=== PATIENT | male | born 1970 | race Caucasian/White ===

== ENCOUNTER 2024-06-12 10:12 | Emergency (ER) | payer OTHER ==
--- OUTSIDE RECORDS SUMMARY | 2024-06-12 10:16 | XMS REPORT | Continuity of Care Document ---
Author Name Unknown Address [address] [facility]. [address] [place] [address] [facility] Address [address] [facility] [place] [address] Care Team Providers Care Director Radio Name Role Phone Itz Jackson Attending Clinician Bridget Molina Attending Clinician Unavailable Physician, No Primary or Family Admitting Clinic barbara Unavailable QI GARCIA Admitting Clinician Unavailable Payers Payer Name Policy Type Policy Number Effective Date Expirati on Date Source Allergies, Adverse Reactions, Alerts Allergy Name Allergy Type Status Severity Reaction(s) Onset Date Inactive Date Treating Clinician Comments Source No Known Allergie s DA Active U 05-08 00:00: 00 [facility] No Known Allergie s DA Active U 2021-03 00:00: 00 [facility] Encounters Start Date/Time End Date/Time Encounter Type Admission Type Attending Clinicians Care Facility Care Department Encounter ID Source 2022-05-08 16:48:00 2022-05-08 18:10:00 Emergency EM Itz Jackson [facility] ER [id number] [facility] 2022-05-08 16:48:00 2022-05-08 18:10:00 Emergency EM Itz Jackson [facility] ER [id number] [facility] 2022-03-10 17:40:00 2022-03-10 20:20:00 Emergency EM Bridget Morton [facility] ER [id number] [facility] Results Test Description Test Time Test Comments Results Result Co mments Source COMPREHENSIVE METABOLIC [id number] 17:20:00* Test Item Value Reference Range Interpretation Comme nts SODIUM (test code = NA) 146 MMOL/L 133-145 H POTASSIUM (test code = K) 4.4 MMOL/L 3.6-5.2 N CHLORIDE (test code = CL) 104 MMOL/L 100-108 N CARBON DIOXIDE (test code = CO2) 33 MMOL/L 22-32 H GLUCOSE (test code = GLU) 121 MG/DL 65-99 H Results of this assay method may be falsely depressed orelevated if patient is taking sulfasalazine. BLOOD UREA NITROGEN (test code = BUN) 14 MG/DL 6-20 N GLOMERULAR FILTRATION RATE (test code = GFR) 66 56-130 N The Glomerular Filtration Rate is a calculated parameterbased on serum Creatinine, patient age and sex. GFR valuesless than 60 mL/min/1.73 square meters are indicative ofChronic Kidney Disease. Values less than 15 mL/min/1.73square meters indicate Kidney failure. The calculation forGFR is based on the CKD-EPI (2020) calculation. This formulais race indifferent and is the recommended formula for GFRby the National Kidney Foundation for Adults.The GFR will not calculate if the sex is unknown or if thepatient's age is <18 years. CREATININE (test code = CREAT) 1.30 MG/DL 0.60-1.00 H TOTAL PROTEIN (test code = PROT) 7.2 G/DL 6.4-8.2 N ALBUMIN (test code = ALB) 4.1 G/DL 3.4-5.0 N CALCIUM (test code = CA) 10.3 MG/DL 8.7-10.5 N BILIRUBIN TOTAL (test code = BILT) 0.8 MG/DL 0.0-1.0 N SGOT/AST (test code = AST) 30 Units/L 15-37 N Results of this assay method may be falsely depressed orelevated if patient is taking sulfasalazine. SGPT/ALT (test code = ALT) 37 Units/L 30-65 N Results of this assay method may be falsely depressed orelevated if patient is taking sulfasalazine. ALKALINE PHOSPHATASE TOTAL (test code = ALKP) 83 Units/L 50-136 N - XR CHEST 1 [id number] 17:14:[address] [facility] [place] [place] : 1970 Sex: M Patient Name: ITZ CASTILLO Unit No: [id number] EXAMS: CPT CODE: [id number] XR CHEST 1 V [id number] Reason: chest pain EXAM: XR Chest 1 View INDICATION: chest pain LOCATION: H50 COMPARISON: None available. TECHNIQUE: Frontal view of the chest was obtained. FINDINGS: The lungs are clear. There is no pleural effusion or pneumothorax. The cardiomediastinal silhouette is unremarkable. No acute osseous abnormality is identified. IMPRESSION: No acute cardiopulmonary abnormality. Electronically Signedby Bridget Butcher MD on 05/08/2022 at 1714 Reported and signed by: Bridget Butcher MD CC: Itz Jackson DOToño Solomon Technologist: DENIA Martines Trscrpt Dt/ ([id number])[email or web address] Orig Print D/T: S: 05/08/2022 (567) [place] FSED NAME: ITZ CASTILLO [address] PHYS: [place] [address] : 1970 AGE: 51 SEX: M LOC: MARC PHONE #: EXAM DATE: 05/08/2022 STATUS: PRE ER FAX #: RAD NO: DC Dt: PAGE 1 Signed Report- XR CHEST 1 [id number] 17:14:[address] [facility] [place] : 1970 Sex: M Patient Name: ITZ CASTILLO Unit No: [id number] EXAMS: CPT CODE: [id number] XR CHEST 1 V 12547 Reason: chest pain EXAM: XR Chest 1 View INDICATION: chest pain LOCATION: H50 COMPARISON: None available. TECHNIQUE: Frontal view of the chest was obtained. FINDINGS: The lungs are clear. There is no pleural effusion or pneumothorax. The cardiomediastinal silhouette is unremarkable. No acute osseous abnormality is identified. IMPRESSION: No acute cardiopulmonary abnormality. at 1714 Reported and signed by: Bridget Butcher MD CC: Itz Solomon Technologist: DENIA Martines Trscrpt Dt/ ([id number])[email or web address] Orig Print D/T: S: 05/08/2022 (0263) [place] FS[facility] NAME: ITZ CASTILLO [address] PHYS: [place] [address] : 1970 AGE: 51 SEX: M LOC: MARC PHONE #: EXAM DATE: 05/08/2022 STATUS: DEP ER FAX #: RAD NO: DC Dt: PAGE 1 Signed ReportCBC W/AUTO [id number] 17:12:00* Test Item Value Reference Range Interpretation Comme nts WHITE BLOOD CELL (test code = WBC) 9.30 x10 3/uL 4.80-10.80 N RED BLOOD CELL (test code = RBC) 5.10 x10 6/uL 4.7-6.1 N HEMOGLOBIN (test code = HGB) 15.3 G/DL 14.0-17.0 N HEMATOCRIT (test code = HCT) 47.6 % 42-52 N MEAN CELL VOLUME (test code = MCV) 93.3 FL 80-94 N MEAN CELL HGB (test code = MCH) 30.0 PG 27-31 N MEAN CELL HGB CONCENTRATION (test code = MCHC) 32.1 G/DL 33-37 L RED CELL DISTRIBUTION WIDTH (test code = RDW) 12.6 % 11.5-14.5 N PLATELET COUNT (test code = PLT) 230 x10 3/uL 150-450 N MEAN PLATELET VOLUME (test code = MPV) 10.8 FL 7.4-10.4 H NEUTROPHIL % (test code = NT%) 78.5 % 42-86 N LYMPHOCYTE % (test code = LY%) 17.3 % 24-44 L MIXED % (test code = MX%) 4.2 % MIXED PERCENTAGE AND ABSOLUTE INCLUDE MONOCYTE, BASOPHIL ANDEOSINOPHIL COUNTS. NEUTROPHIL # (test code = NT#) 7.30 x10 3/uL 1.8-7.7 N LYMPHOCYTE # (test code = LY#) 1.60 x10 3/uL 1.0-4.8 N MIXED # (test code = MX#) 0.4 k/mm3 MIXED PERCENTAGE AND ABSOLUTE INCLUDE MONOCYTE, BASOPHIL ANDEOSINOPHIL COUNTS. UA RFLX MICROSCOPIC [id number] 19:57:00* Test Item Value Reference Range Interpretation Comme nts UA COLOR (test code = COLU) Light-Yellow YELLOW UA APPEARANCE (test code = APPU) CLEAR CLEAR UA GLUCOSE DIPSTICK (test code = DGLUU) NORMAL mg/dL NEGATIVE UA BILIRUBIN DIPSTICK (test code = BILU) NEGATIVE NEGATIVE UA KETONE DIPSTICK (test code = KETU) 20 mg/dL NEGATIVE A UA SPECIFIC GRAVITY (test code = SGU) 1.011 1.001-1.035 N UA BLOOD DIPSTICK (test code = LOY) NEGATIVE UA PH DIPSTICK (test code = WILTON) 7.0 5.5-7.0 N UA PROTEIN DIPSTICK (test code = PROU) NEGATIVE mg/dL NEGATIVE UA UROBILINOGEN DIPSTICK (test code = URO) NORMAL mg/dL NORMAL UA NITRITE DIPSTICK (test code = JEVON) NEGATIVE NEGATIVE UA LEUKOCYTE ESTERASE DIPSTICK (test code = LEUU) NEGATIVE NEGATIVE UA COMMENT (test code = COMU) VOLUME 10-12 ML URINE SPECIMEN DESCRIPTION (test code = UASPEC) Clean Catch UA WBC (test code = WBCU) < 10 #/HPF 0-10 UA SQUAMOUS CELLS (test code = SQU) 0 - 20 #/LPF <100 UA CULTURE NEEDED? (test code = UACULT) Criteria not met Indication for culture: RiskForSepsis-no oth srcURINE SOURCE: Clean CatchTROP-I HIGH [id number] 19:15:00* Test Item Value Reference Range Interpretation Comme nts TROP-I HIGH SENSITIVITY (test code = TROPIHS) 6 ng/L < 76 Results above 51 for females and 76 for males are consistent with IFCC Committee recommendations to use the 99th percentile of a normal population as a reference decision-limit. - The use of serial sampling and testing protocol is a recommended practive.- An elevated high sensitiveity troponin level alone is often not sufficient for diagnosis of myocardial infarction.- In order to distinguish acute elevations of high sensitivity troponin from other clinical conditions, the Fourth [place] Definition of Myocardial Infarction stresses clinical assessment and demonstration of a rise and/or fall in serial troponin results above the upper reference limit.Results of this assay method may be falsely depressed orelevated if patient is taking high doses of Biotin. BASIC METABOLIC [id number] 19:15:00* Test Item Value Reference Range Interpretation Comme nts SODIUM (test code = NA) 141 MMOL/L 133-145 N POTASSIUM (test code = K) 4.1 MMOL/L 3.6-5.2 N CHLORIDE (test code = CL) 102 MMOL/L 100-108 N CARBON DIOXIDE (test code = CO2) 27 MMOL/L 22-32 N GLUCOSE (test code = GLU) 89 MG/DL 65-99 N Results of this assay method may be falsely depressed orelevated if patient is taking sulfasalazine. BLOOD UREA NITROGEN (test code = BUN) 11 MG/DL 6-20 N GLOMERULAR FILTRATION RATE (test code = GFR) 77 56-130 N The Glomerular Filtration Rate is a calculated parameterbased on serum Creatinine, patient age and sex. GFR valuesless than 60 mL/min/1.73 square meters are indicative ofChronic Kidney Disease. Values less than 15 mL/min/1.73square meters indicate Kidney failure. The calculation forGFR is based on the CKD-EPI (2020) calculation. This formulais race indifferent and is the recommended formula for GFRby the National Kidney Foundation for Adults.The GFR will not calculate if the sex is unknown or if thepatient's age is <18 years. CREATININE (test code = CREAT) 1.15 MG/DL 0.60-1.00 H CALCIUM (test code = CA) 10.5 MG/DL 8.7-10.5 N HEPATIC FUNCTION [id number] 19:15:00* Test Item Value Reference Range Interpretation Comme nts TOTAL PROTEIN (test code = PROT) 8.2 G/DL 6.4-8.2 N ALBUMIN (test code = ALB) 4.9 G/DL 3.4-5.0 N GLOBULIN (test code = GLOB) 3.3 G/DL 1.5-3.8 N ALBUMIN/GLOBULIN RATIO (test code = A/G) 1.5 1.1-2.2 N BILIRUBIN TOTAL (test code = BILT) 0.9 MG/DL 0.0-1.0 N BILIRUBIN DIRECT (test code = BILD) 0.2 MG/DL 0.0-0.3 N BILIRUBIN INDIRECT (test code = BILIND) 0.7 MG/DL 0.0-0.7 N SGOT/AST (test code = AST) 38 Units/L 15-37 H Results of this assay method may be falsely depressed orelevated if patient is taking sulfasalazine. SGPT/ALT (test code = ALT) 61 Units/L 30-65 N Results of this assay method may be falsely depressed orelevated if patient is taking sulfasalazine. ALKALINE PHOSPHATASE TOTAL (test code = ALKP) 87 Units/L 50-136 N [id number] 19:15:00* Test Item Value Reference Range Interpretation Comme nts LIPASE (test code = LIP) 159 Units/L 73-393 N [id number] 19:15:00* Test Item Value Reference Range Interpretation Comme nts MAGNESIUM (test code = MAG) 2.3 MG/DL 1.8-2.4 N - XR CHEST 1 [id number] 18:44:[address] [facility] [place] : 1970 Sex: M Patient Name: ITZ CASTILLO Unit No: [id number] EXAMS: CPT CODE: [id number] XR CHEST 1 V [id number] Reason: Abdominal pain - XR CHEST 1 V PROVIDED REASON FOR EXAM: Abdominal pain COMPARISON: None available. FINDINGS: Single frontal view of the chest. No focal consolidation. Cardiac silhouette andpulmonary vasculature are within normal limits. No acute osseous abnormality. IMPRESSION: No acute cardiopulmonary process. Location: [facility] at 1844 Reported and signed by: Elicia Menjivar MD CC: Fely Eng JAVA FRONT END WEB DEVELOPER; Bridget Morton DO Technologist: Larissa CORDON Trscrpt Dt/ ([id number])[email or web address] Orig Print D/T: S: 03/10/2022 (1847) [facility] Area NAME: ITZ CASTILLO [address] PHYS: [place] [address] : 1970 AGE: 51 SEX: M LOC: SERGEI PHONE #: [phone] EXAM DATE: 03/10/2022 STATUS: REG ER FAX #: RAD NO: DC Dt: PAGE 1 Signed [facility] W/AUTO [id number] 18:41:00* Test Item Value Reference Range Interpretation Comme nts WHITE BLOOD CELL (test code = WBC) 10.45 x10 3/uL 4.80-10.80 N RED BLOOD CELL (test code = RBC) 5.20 x10 6/uL 4.7-6.1 N HEMOGLOBIN (test code = HGB) 15.9 G/DL 14.0-17.0 N HEMATOCRIT (test code = HCT) 48.2 % 42-52 N MEAN CELL VOLUME (test code = MCV) 92.7 FL 80-94 N MEAN CELL HGB (test code = MCH) 30.6 PG 27-31 N MEAN CELL HGB CONCENTRATION (test code = MCHC) 33.0 G/DL 33-37 N RED CELL DISTRIBUTION WIDTH (test code = RDW) 12.9 % 11.5-14.5 N PLATELET COUNT (test code = PLT) 275 x10 3/uL 150-450 N MEAN PLATELET VOLUME (test code = MPV) 11.1 FL 7.4-10.4 H NEUTROPHIL % (test code = NT%) 74.8 % 42-86 N IMMATURE GRANULOCYTE % (test code = IG%) 0.3 % 0.0-2.0 N LYMPHOCYTE % (test code = LY%) 19.7 % 24-44 L MONOCYTE % (test code = MO%) 4.4 % 0.0-4.0 H EOSINOPHIL % (test code = EO%) 0.5 % 0.0-2.7 N BASOPHIL % (test code = BA%) 0.3 % 0.0-0.5 N NUCLEATED RBC % (test code = NRBC%) 0.0 % 0.0-0.0 N NEUTROPHIL # (test code = NT#) 7.82 x10 3/uL 1.8-7.7 H IMMATURE GRANULOCYTE # (test code = IG#) 0.03 x10 3/uL 0.00-0.03 N LYMPHOCYTE # (test code = LY#) 2.06 x10 3/uL 1.0-4.8 N MONOCYTE # (test code = MO#) 0.46 x10 3/uL 0.0-0.8 N EOSINOPHIL # (test code = EO#) 0.05 x10 3/uL 0.0-0.5 N BASOPHIL # (test code = BA#) 0.03 x10 3/uL 0.0-0.2 N NUCLEATED RBC # (test code = NRBC#) 0.0 X10 3/uL 0.0-0.2 N Notes Date/Time Note Provider Source 2022-05-08 16:58:00 [facility] ([facility] OR A [facility]AMPUS OF [facility] EMERGENCY PROVIDER REPORT REPORT#:[id number] REPORT STATUS: Signed DATE:05/08/22 TIME: 1657 PATIENT: ITZ CASTILLO UNIT #: [id number] ROOM/BED: AGE: 51 SEX: M PCP PHYS: No Primary or Family Physician SERVICE AUTHOR: Lety Solomon APRNNP * ALL edits or amendments must be made on the electronic/computer document * Lety Solomon 05/08/221657: HPI-General Illness General Confirmed Patient Yes Initial Greet Date/Time 05/08/221649 Presentation Chief Complaint Chest pain (PRESSURE), Heartburn, Palpitations Hx Obtained From Patient Sudden in Onset? Yes (X3 DAYS) Context Recent Healthcare No recent doctor visit, No recent hospitalization Free Text HPI Notes Free Text HPI Notes 51-year-old male presents ER complaining of chest pain/pressure in his chest, heartburn, palpitations that started earlier today. He has had this many times in the past and was diagnosed with heartburn and esophageal spasms. He recently reduced his medications on his own, including his pantoprazole and sucralfate. He is from [place] and is here in [place] visiting until next week. Denies fever, chills, headaches, dizziness, confusion, trouble swallowing, ear pain, sore throat, cough, shortness of breath, nausea, vomiting, diarrhea, urinary changes. Review of Systems ROS Statements All systems rev neg except as marked. Free Text ROS Notes Free Text ROS Notes See HPI for pertinent positives and negatives Past Medical History - Adult Stated Complaint Chest pain, heartburn, palpitations Allergies Coded Allergies: No Known Allergies (05/08/22) Home Medications Reported Medications PANTOPRAZOLE DR (PROTONIX) SUCRALFATE (CARAFATE) Review of Nursing Notes Rev avail, and agree Past Medical History: Reports: GERD/gastritis. Drug Use Denies recreational drugs Ambulatory Status Independent Physical Exam Vital Signs Review of Vital Signs Reviewed Free Text PE Notes Free Text PE Notes Gen: Well-appearing adult, appears stated age, NAD HEENT: Pupils equal, responsive bilat. No sclera icterus. Resp: Even, non-labored. Clear throughout. No w/r/r. Cardiac: RRR, no murmur, no clicks, no rubs. Peripheral pulses intact. GI: Soft, non-tender. No masses or hernias appreciated. Bowel sounds normoactive throughout. : No CVA tenderness. Musc/Sk: Ambulatory, steady gait. No obvious deformities. Skin: pink, warm, dry. Neuro: GCS 15, A Ox4. Psych: Anxious, appropriate, conversant. Interpretation Diagnostics Lab Results Interpretation Results Laboratory Tests 05/08/221707: [Embedded Image Not Available] 05/08/221703: [Embedded Image Not Available] Laboratory Tests: 05/08 1708 170 Chemistry Sodium (133 - 145 MMOL/L) 146 H Potassium (3.6 - 5.2 MMOL/L) 4.4 Chloride (100 - 108 MMOL/L) 104 Carbon Dioxide (22 - 32 MMOL/L) 33 H BUN (6 - 20 MG/DL) 14 Creatinine (0.60 - 1.00 MG/DL) 1.30 H Estimated GFR (MDRD) (56 - 130) 66 Glucose (65 - 99 MG/DL) 121 H Calcium (8.7 - 10.5 MG/DL) 10.3 Total Bilirubin (0.0 - 1.0 MG/DL) 0.8 AST (15 - 37 Units/L) 30 ALT (30 - 65 Units/L) 37 Alkaline Phosphatase (50 - 136 Units/L) 83 Rapid Troponin I (0.00 - 0.08 NG/ML) 0.00 Total Protein (6.4 - 8.2 G/DL) 7.2 Albumin (3.4 - 5.0 G/DL) 4.1 Hematology WBC (4.80 - 10.80 x10 3/uL) 9.30 RBC (4.7 - 6.1 x10 6/uL) 5.10 Hgb (14.0 - 17.0 G/DL) 15.3 Hct (42 - 52 %) 47.6 MCV (80 - 94 FL) 93.3 MCH (27 - 31 PG) 30.0 MCHC (33 - 37 G/DL) 32.1 L RDW Coeff of South (11.5 - 14.5 %) 12.6 Plt Count (150 - 450 x10 3/uL) 230 MPV (7.4 - 10.4 FL) 10.8 H Neut % (Auto) (42 - 86 %) 78.5 Lymph % (Auto) (24 - 44 %) 17.3 L Mixed Cells % (Auto) (%) 4.2 Mixed Cells # (k/mm3) 0.4 Absolute Neuts (auto) (1.8 - 7.7 x10 3/uL) 7.30 Absolute Lymphs (auto) (1.0 - 4.8 x10 3/uL) 1.60 Recent Impressions: RADIOLOGY - XR CHEST 1 V 05/08 1701 Report Impression - Status: SIGNED Entered: 05/08/20221717 IMPRESSION: No acute cardiopulmonary abnormality. Impression By: EmekaEBLoren - Bridget Butcher MD Lab Imaging Statement Laboratory radiographic studies reviewed and considered in the medical decision-making. Re-Evaluation MDM Re-Evaluation/Progress #1 Eval Following Treatment Pt. feels better, Condition resolved Pain Re-Evaluation Denies pain, Pain resolved Plan Post Re-Eval Plan discharge Tissue Perfusion Reassessment Patient tissue perfusion reassessment completed. ED Course Medication(s) Ordered Medication(s) Ordered: Autonomic Drugs Sig/Clayton Start time Last Medication Dose Route Stop Time Status Admin Multi-Ingredient GI 40 ML X1ED STA 05/08 1658 DC 05/08 Drug PO 05/08 1659 1708 Central Nervous System Agents Sig/Clayton Start time Last Medication Dose Route Stop Time Status Admin Aspirin 324 MG X1ED STA 05/08 1656 DC 05/08 PO 05/08 1657 1708 Electrolytic, Caloric, And Jyoti Sig/Clayton Start time Last Medication Dose Route Stop Time Status Admin Sodium Chloride 1,000 ML X1ED STA 05/08 1726 DCD 05/08 IV 05/08 1825 1732 Patient Discharge Departure Vital Signs/Condition Condition Stable, Improved Clinical Impression Clinical Impression Primary Impression: Esophageal spasm Secondary Impressions: GERD (gastroesophageal reflux disease) Ruled Out Impressions: Acute IN Disposition Decision Discharge )( Discharged to Home Yes )( Time 1745 )( Date 05/08/22 Discharge/Care Plan Counseled Regarding Diagnosis, Lab results, Imaging studies, Prescriptions, Need for follow-up, When to return to ED Patient Instructions ED Esophageal Spasm, ED GERD (Adult) Additional Instructions Restart your carafate 1G four times a day. Restart your pantoprazole 40mg twice a day. Discharge Note I have spoken with the patient and/or caregivers. I have explained the patient's condition, diagnoses and treatment plan based on the information available to me at this time. I have answered the patient's and/or caregiver's questions and addressed any concerns. The patient and/or caregivers have as good an understanding of the patient's diagnosis, condition and treatment plan as can be expected at this point. The vital signs have been stable. The patient's condition is stable and appropriate for discharge from the emergency department. The patient will pursue further outpatient evaluation with the primary care physician or other designated or consulting physician as outlined in the discharge instructions. The patient and/or caregivers are agreeable to this plan of care and follow-up instructions have been explained in detail. The patient and/or caregivers have received these instructions in written format and have expressed an understanding of the discharge instructions. The patient and/or caregivers are aware that any significant change in condition or worsening of symptoms should prompt an immediate return to this or the closest emergency department or a call to 911. Itz Jackson 05/08/22 1706: Physical Exam Vital Signs Vital Signs First Documented: Result Date Time Pulse Ox 100 05/08 1648 B/P 156/74 / 1648 B/P Mean 101 05/08 1648 O2 Delivery Room air 05/08 1648 Temp 36.9 05/08 1648 Pulse 59 05/08 1648 Resp 16 05/08 1648 Last Documented: Result Date Time Pulse Ox 100 05/08 1648 B/P 156/74 05/08 1648 B/P Mean 101 05/08 1648 O2 Delivery Room air 05/08 1648 Temp 36.9 05/08 1648 Pulse 59 05/08 1648 Resp 16 05/08 1648 Review of Vital Signs Reviewed Basic Physical Exam Basic PE GEN: Well appearing/NAD, HEAD: Atraumatic/NC, EYES: PERRL, conj clear, ENT: Membranes moist, NECK: Supple, RESP: No resp distress, CV: Reg rate rhythm, ABD: Soft/non-tender, EXT: No gross abnormality, SKIN: No rashes, warm/ dry, NEURO: alert oriented, NEURO: gross movement NL, PSYCH: NL thought content Physical Exam General/Const General/Const Awake, Alert, No acute distress Resp/Chest Respiratory/Chest Atraumatic, Breath sounds NL, Breath sounds = bilat, No respiratory distress Cardiovascular Cardiovascular Heart rate NL, Regular rhythm, Heart sounds NL Abdomen/GI Abdomen/GI Atraumatic, Soft, Non-tender, No guarding, No rebound, No distention Interpretation Diagnostics ECG #1 Interpretation Text/Dict Note This is an independent evaluation by this examiner on EKG: Sinus bradycardia ventricular rate of 59. There is a incomplete right bundle branch block present. QRS duration of 108 ms. Diagnosis: Borderline EKG. Time 16: 45 Patient Discharge Departure Vital Signs/Condition Vital Signs First Documented: Result Date Time Pulse Ox 100 05/08 1648 B/P 156/74 / 1648 B/P Mean 101 05/08 1648 O2 Delivery Room air 05/08 1648 Temp 36.9 02 1648 Pulse 59 02/ 1648 Resp 16 05/08 1648 Last Documented: Result Date Time Pulse Ox 100 02 1648 B/P 156/74 /12 1648 B/P Mean 101 12 1648 O2 Delivery Room air 05/08 1648 Temp 36.9 05/08 1648 Pulse 59 / 1648 Resp 16 05/08 1648 All vital signs available at the time of this entry have been reviewed. Discharge/Care Plan (Auto) Prescriptions Current Visit Scripts PANTOPRAZOLE DR (PROTONIX) 40 MG PO BID 30 Days #60 TABS Supervising Physician Note MidLv/Doc Saw Pt 1 I have personally seen the patient and I evaluated the patient along with involvement of the PA/JAVA FRONT END WEB DEVELOPER. I agree with the PA/annealing torch operator findings and plan. I have performed all aspects of MDM as documented including: evaluation of the patient/ patient's condition(s), review and analysis of available data, and determination of risk of patient management decisions. at 1130 at 0042 RPT #:[id number] END OF REPORT [facility] 2022-03-10 17:54:00 [id number] [place], [place] PATIENT NAME: ITZ CASTILLO ADMIT DATE: 03/10/22 ACCOUNT NO: [id number] ROOM NO: AGE: 51 REPORT TYPE: ELECTROCARDIOGRAM SEX: M : 68 ADMITTING PHYSICIAN: ATTENDING PHYSICIAN:Bridget Morton DO Order: [id number] Test Reason : abdominal pain Test Date/Time Stamp: MonMar 10 2022 17:54:22 Blood Pressure : / mmHG Vent. Rate : 055 BPM Atrial Rate : 055 BPM P-R Int : 144 ms QRS Dur : 114 ms QT Int : 408 ms P-R-T Axes : 054 022 053 degrees QTc Int : 390 ms Sinus bradycardia with sinus arrhythmia Possible Left atrial enlargement Incomplete right bundle branch block Borderline ECG No previous ECGs available Confirmed by BRIDGET MORTON ([id number]), newspaper editor managing ESTEFANIA FORD ([id number]) on 04/13/2022 10:19:46 AM Referred By: Self Referred Confirmed by:BRIDGET MORTON at 1019 PATIENT NAME: ITZ CASTILLO [facility] 2022-03-10 17:53:00 [facility] ([facility]) OR A [facility] OF [facility] EMERGENCY PROVIDER REPORT REPORT#:[id number] REPORT STATUS: Signed DATE:03/10/22 TIME: 1752 PATIENT: ITZ CASTILLO UNIT #: [id number] ROOM/BED: AGE: 51 SEX: M PCP PHYS: Undefined Provider SERVICE AUTHOR: Fely Eng JAVA FRONT END WEB DEVELOPER * ALL edits or amendments must be made on the electronic/computer document * Fely Eng 03/10/22 175: HPI-Abd Pain M 40 and Over Free Text HPI Notes Free Text HPI Notes This is a 51-year-old male brought in by for chief complaint of upper abdominal pain mostly epigastric. Patient has been having this problem for a few days now had an outpatient ultrasound that showed fatty liver disease gallbladder normal. Patient stated that today the abdominal he has just gotten worse. Took his Protonix earlier today. Patient reports nausea without vomiting. Past medical history of GERD. Denies smoking, drinking alcohol, use of illicit drugs. Patient sees a GI doctor. He has an endoscopy scheduled for next year. Patient states that he was prescribed Carafate but it is on national back order. Patient appears uncomfortable. General Confirmed Patient Yes Patient Type New patient Initial Greet Date/Time 03/10/221748 Presentation Chief Complaint Abdominal pain, Nausea Hx Obtained From Patient Sudden in Onset? No Onset Occurred Chronic Symptom Duration Since onset, Chronic Progression since Onset Rapidly worsening Caused by No trauma by history Location Abdomen upper, Epigastric Quality Aching, Burning Radiation Chest. Migration/Movement None Severity: Onset Mild Severity: Current Severe Associated with Reports: Nausea. Denies: Anorexia, Back pain, Chest pain, Chills, Constipation, Diarrhea, Dysuria, Fever, Hematemesis, Hematochezia, Hematuria, Melena, Shortness of breath, Urinary frequency, Urinary retention, Urinary tract symptoms, Vomiting. Context Recent Healthcare Recent doctor visit Risk-Abd Pain M 40 and Over )( Abdominal Aortic Aneurysm Risk factors reviewed Coronary Artery Disease Risk factors reviewed Thoracic Aortic Dissection Risk factors reviewed Review of Systems ROS Statements All systems rev neg except as marked. Focused Review of Systems Constitutional Denies: Chills, Fatigue, Fever, Lethargy, Malaise, Recent wt loss, Weakness - generalized. Respiratory Reports: Cough, non-productive. Denies: Cough, productive, Dyspnea on exertion. Cardiovascular Denies: Chest pain, Dyspnea on exertion. GI Reports: Abdominal pain, Nausea. Denies: Constipation, Diarrhea, Vomiting. Male Denies: Dysuria, Flank pain, Hematuria, Incontinence, Nocturia, Penile discharge , Penile lesion, Scrotal swelling, Testicular pain, Testicular swelling, Urinary frequency, Urinary urgency, Urination decreased, Urination increased. Musculoskeletal Denies: Back pain, Extremity pain, Extremity swelling, Joint pain, Joint swelling, Lumbar pain, Myalgia, Neck pain, Thoracic pain. Past Medical History - Adult Stated Complaint CHEST [id number] Allergies Coded Allergies: No Known Allergies (03/10/22) Review of Nursing Notes Rev avail, and agree Additional Medical History GERD, kidney stones Additional Surgical History Kidney stone retrieval Alcohol Use Denies EtOH use Drug Use Denies recreational drugs Smoking status for patients 13 years old or older: Never Smoker Ambulatory Status Independent Physical Exam Vital Signs Vital Signs First Documented: Result Date Time Pulse Ox 99 03/10 1742 B/P 143/79 03/10 1742 B/P Mean 100 03/10 1742 O2 Delivery Room air 03/10 1742 Temp 98.3 03/10 1742 Pulse 59 03/10 1742 Resp 18 03/10 1742 Last Documented: Result Date Time Pulse Ox 100 03/10 2020 B/P 136/81 03/10 2020 B/P Mean 99 03/10 2020 O2 Delivery Room air 03/10 2020 Temp 98.4 03/10 2020 Pulse 67 03/10 2020 Resp 16 03/10 2020 Review of Vital Signs Reviewed Focused PE General/Const General/Const Awake, Alert, Cooperative, Not toxic appearing Eyes Eyes PERRL, EOMI, No scleral icterus Ears/Nose/Throat Ears/Nose/Throat Airway patent, Mucous membranes moist, Pharynx NL Resp/Chest Respiratory/Chest Breath sounds NL, Breath sounds = bilat, No respiratory distress Cardiovascular Cardiovascular Heart rate NL, Regular rhythm, Heart sounds NL Abdomen/GI Abdomen/GI Soft, BS normoactive, No distention, No hernia, No palpable mass, No pulsatile mass MS Back Back Inspection NL, Full range of motion, Painless range of motion, No midline vertebral tend, No CVA tenderness Skin Skin Atraumatic, Color NL, No rash, Warm, Dry, Intact, Turgor NL, No swelling Neurologic Neurologic Oriented X3, Speech NL Interpretation Diagnostics Lab Results Interpretation Results Laboratory Tests 03/10/221819: [Embedded Image Not Available] Laboratory Tests: 03/10 Chemistry Sodium (133 - 145 MMOL/L) 141 Potassium (3.6 - 5.2 MMOL/L) 4.1 Chloride (100 - 108 MMOL/L) 102 Carbon Dioxide (22 - 32 MMOL/L) 27 BUN (6 - 20 MG/DL) 11 Creatinine (0.60 - 1.00 MG/DL) 1.15 H Estimated GFR (MDRD) (56 - 130) 77 Glucose (65 - 99 MG/DL) 89 Calcium (8.7 - 10.5 MG/DL) 10.5 Magnesium (1.8 - 2.4 MG/DL) 2.3 Total Bilirubin (0.0 - 1.0 MG/DL) 0.9 Direct Bilirubin (0.0 - 0.3 MG/DL) 0.2 Indirect Bilirubin (0.0 - 0.7 MG/DL) 0.7 AST (15 - 37 Units/L) 38 H ALT (30 - 65 Units/L) 61 Alkaline Phosphatase (50 - 136 Units/L) 87 Troponin I High Sens (< 76 ng/L) 6 Total Protein (6.4 - 8.2 G/DL) 8.2 Albumin (3.4 - 5.0 G/DL) 4.9 Globulin (1.5 - 3.8 G/DL) 3.3 Albumin/Globulin Ratio (1.1 - 2.2) 1.5 Lipase (73 - 393 Units/L) 159 Hematology WBC (4.80 - 10.80 x10 3/uL) 10.45 RBC (4.7 - 6.1 x10 6/uL) 5.20 Hgb (14.0 - 17.0 G/DL) 15.9 Hct (42 - 52 %) 48.2 MCV (80 - 94 FL) 92.7 MCH (27 - 31 PG) 30.6 MCHC (33 - 37 G/DL) 33.0 RDW Coeff of [place] (11.5 - 14.5 %) 12.9 Plt Count (150 - 450 x10 3/uL) 275 MPV (7.4 - 10.4 FL) 11.1 H Neut % (Auto) (42 - 86 %) 74.8 Lymph % (Auto) (24 - 44 %) 19.7 L [place] % (Auto) (0.0 - 4.0 %) 4.4 H Eos % (Auto) (0.0 - 2.7 %) 0.5 Baso % (Auto) (0.0 - 0.5 %) 0.3 Eos # (Auto) (0.0 - 0.5 x10 3/uL) 0.05 Baso # (Auto) (0.0 - 0.2 x10 3/uL) 0.03 Abs Immat Gran (auto) (0.00 - 0.03 x10 3/uL) 0.03 Absolute Neuts (auto) (1.8 - 7.7 x10 3/uL) 7.82 H Absolute Lymphs (auto) (1.0 - 4.8 x10 3/uL) 2.06 Absolute Monos (auto) (0.0 - 0.8 x10 3/uL) 0.46 Absolute Nucleated RBC (0.0 - 0.2 X10 3/uL) 0.0 Immature Gran % (0.0 - 2.0 %) 0.3 Nucleated RBC % (0.0 - 0.0 %) 0.0 Urines Ur Spec Description Clean Catch Urine Color (YELLOW) Light-Yellow Urine Appearance (CLEAR) CLEAR Urine pH (5.5 - 7.0) 7.0 Ur Specific [place] (1.001 - 1.035) 1.011 Urine Protein (NEGATIVE mg/dL) NEGATIVE Urine Glucose (UA) (NEGATIVE mg/dL) NORMAL Urine Ketones (NEGATIVE mg/dL) 20 A Urine Blood NEGATIVE Urine Nitrite (NEGATIVE) NEGATIVE Urine Bilirubin (NEGATIVE) NEGATIVE Urine Urobilinogen (NORMAL mg/dL) NORMAL Ur Leukocyte Esterase (NEGATIVE) NEGATIVE Urine WBC (0 - 10 #/HPF) < 10 Ur Squamous Epith Cells (<100 #/LPF) 0 - 20 Urine Culture Screen Criteria not met Urine Comment VOLUME 10-12 ML Recent Impressions: RADIOLOGY - XR CHEST 1 V 03/10 1810 Report Impression - Status: SIGNED Entered: 03/10/2022 1848 IMPRESSION: No acute cardiopulmonary process. Location: [facility] Impression By: [email or web address] - Elicia Menjivar MD Lab Imaging Statement Laboratory radiographic studies reviewed and considered in the medical decision-making. Point of Care Testing Pulse Oximetry Pulse Ox % 99 On: Room air Interpretation Interpreted by ak, Pulse oximetry normal Time 1741 Re-Evaluation [facility] )( Re-Evaluation/Progress #1 Time of Re-Eval 1952 )( Re-Eval Status Resolved Re-Eval Abdomen Soft, Non-tender, No guarding, No rebound, BS normoactive, No distention Abd Pain MDM Note M > 40 The patient is resting comfortably and feels better, is alert and in no distress. The repeat examination is unremarkable and benign; in particular, there is no discomfort at McBurney's point and there is no pulsatile mass. The history, exam, diagnostic testing, and current condition do not suggest acute appendicitis, bowel obstruction, acute cholecystitis, bowel perforation, major gastrointestinal bleeding, severe diverticulitis, abdominal aortic aneurysm, mesenteric ischemia, volvulus, sepsis, or other significant pathology to warrant further testing, continued ED treatment, admission, or surgical evaluation at this point. The vital signs have been stable. The patient does not have uncontrollable pain, intractable vomiting, or other significant symptoms. The patient's condition is stable and appropriate for discharge from the emergency department. The patient will pursue further outpatient evaluation with the primary care physician or other designated or consulting physician as indicated in the discharge instructions. Patient Discharge Departure Vital Signs/Condition Vital Signs First Documented: Result Date Time Pulse Ox 99 03/10 1742 B/P 143/79 03/10 1742 B/P Mean 100 03/10 1742 O2 Delivery Room air 03/10 1742 Temp 98.3 03/10 1742 Pulse 59 03/10 1742 Resp 18 03/10 1742 Last Documented: Result Date Time Pulse Ox 100 03/10 2020 B/P 136/81 03/10 2020 B/P Mean 99 03/10 2020 O2 Delivery Room air 03/10 2020 Temp 98.4 03/10 2020 Pulse 67 03/10 2020 Resp 16 03/10 2020 All vital signs available at the time of this entry have been reviewed. Condition Stable, Improved Clinical Impression Clinical Impression Primary Impression: GERD (gastroesophageal reflux disease) Disposition Decision Discharge )( Discharged to Home Yes )( Time 1952 )( Date 03/10/22 Discharge/Care Plan Counseled Regarding Diagnosis, Lab results, Imaging studies, Prescriptions, Need for follow-up, When to return to ED (Auto) Prescriptions Current Visit Scripts BISMUTH SUBSALICYLATE (KAOPECTATE EXTRA STRENGTH 525 MG/15 ML) 15 ML PO Q4H PRN PRN gerd BISMUTH SUBSALICYLATE (KAOPECTATE EXTRA STRENGTH 525 MG/15 ML) 15 ML PO Q4H PRN PRN gerd #300 ML Prescriptions Reviewed Risks, Benefits, Alternative treatment Patient Instructions ED GERD (Adult) Discharge Note I have spoken with the patient and/or caregivers. I have explained the patient's condition, diagnoses and treatment plan based on the information available to me at this time. I have answered the patient's and/or caregiver's questions and addressed any concerns. The patient and/or caregivers have as good an understanding of the patient's diagnosis, condition and treatment plan as can be expected at this point. The vital signs have been stable. The patient's condition is stable and appropriate for discharge from the emergency department. The patient will pursue further outpatient evaluation with the primary care physician or other designated or consulting physician as outlined in the discharge instructions. The patient and/or caregivers are agreeable to this plan of care and follow-up instructions have been explained in detail. The patient and/or caregivers have received these instructions in written format and have expressed an understanding of the discharge instructions. The patient and/or caregivers are aware that any significant change in condition or worsening of symptoms should prompt an immediate return to this or the closest emergency department or a call to 911. Quality Measures BP F/U for HTN F/u with PCP/other doc Smoking Cessation Screened, non user Bridget Morton 03/10/22 1911: Past Medical History - Adult Home Medications Reported Medications ATORVASTATIN (LIPITOR) 40 MG PO BEDTIME PANTOPRAZOLE DR (PROTONIX) 40 MG PO BID FAMOTIDINE (PEPCID) 40 MG PO DAILY Interpretation Diagnostics ECG #1 Interpretation Text/Dict Note Sinus bradycardia rate of [address] segment and T wave changes no ectopy normal axis normal incomplete right bundle branch block QTC is normal at 390 no ischemia Re-Evaluation MDM ED Course Medication(s) Ordered Medication(s) Ordered: Autonomic Drugs Sig/Cl[place] Start time Last Medication Dose Route Stop Time Status Admin Multi-Ingredient GI 40 ML X1ED STA 03/10 1750 DC 03/10 Drug PO 03/10 1751 1845 Patient Discharge Departure Discharge/Care Plan Referrals Provider Group: PRIMARY CARE Follow-Up: Tomorrow Supervising Physician Note MidLv/Doc Saw Pt 1 I was available for consultation as needed at all times during the patient's visit in the emergency department. I was not asked to see this patient. Reddy Camara 03/11/22 0108: Patient Discharge Departure Supervising Physician Note MidLv Saw Pt Alone I have reviewed the PA/JAVA FR[employer] END WEB DEVELOPER's note and plan of care. I was available for consultation as needed at all times during the patient's visit in the emergency department. I agree with the clinical impression, plan and disposition. at 2006 at 0108 at 1156 RPT #:[id number] END OF REPORT [facility]
--- NOTE | 2024-06-12 10:47 | RAD REPORT ---
EXAM: CT brain without contrast HISTORY: DIZZINESS COMPARISON: None TECHNIQUE: Multiple contiguous axial images were obtained and a CT of the brain without contrast. Sag ittal and coronal reformats were performed. One or more of the following dose reduction techniques were used: Automated exposure control, adjust ment of the mA and/or kV according to patient size, and/or iterative reconstruction. FINDINGS: No evidence of hydrocephalus, intracranial hemorrhage, or extra-axial fluid collection. The brain is normal in morphology. No evidence of midline shift or areas of brain edema. The calvarium is intact. The visualized paranasal sinuses and mastoid air cells are essentially clear . IMPRESSION: No evidence of acute intracranial abnormality.
[2024-06-12 11:11] LABS: Absolute Eosinophils 0.2 K/uL (0-0.5); Absolute Lymphocytes (CBC) 1.6 K/uL (0.7-4.9); Absolute Monocytes 0.4 K/uL (0.1-1.3); Absolute Neutrophil 4.9 K/uL (1.8-8.0); Basophils % 0.6 % (0-1.3); Eosinophils % 2.3 % (0-4.4); Hemoglobin 16.1 g/dL (13.6-17.9); Lymphocytes % 22.8 % (15.3-44.8); MCH 31.9 pg (27.0-35.0); MCV 91.2 fL (80-100); MPV 9.5 fL (7.6-11.3); Monocytes % 5.1 % (3.3-12.3); Neutrophils % 69.2 % (41.7-73.7); Nucleated Red Blood Cells % 0.1 % (0-0); Platelets 241 thou/uL (152-406); RBC Red Blood Cell Count 5.04 M/uL (4.33-5.43)
[2024-06-12 11:30] LABS: ALT/SGPT 60 U/L (16-61); AST/SGOT 28 U/L (15-37); Albumin 3.9 g/dL (3.4-5.0); Albumin/Globulin Ratio 1.1 (1.1-1.8); Alkaline Phosphatase 82 U/L (45-117); BUN Blood Urea Nitrogen 13 mg/dL (7-18); Bicarbonate 28 mEq/L (21-32); Bilirubin Direct 0.2 mg/dL (0-0.2); Bilirubin Indirect, Calculated 0.5 mg/dL (0.2-0.8); Bilirubin Total 0.7 mg/dL (0.2-1.0); Globulin 3.5 g/dL (2.3-3.5); Glomerular Filtration Rate 64 ml/min (=/>90); Glucose Level 94 mg/dL (74-106); Lipase 36 U/L (13-75); Magnesium 2.3 mg/dL (1.6-2.4); Protein, Total 7.4 g/dL (6.4-8.2); Sodium Level 137 mEq/L (136-145)
[2024-06-12 11:31] LABS: Troponin High Sensitivity < 3.0 pg/mL (<58.9)
--- NOTE | 2024-06-12 11:37 | EDPHYS ---
Physician Documentation [facility] Name: Itz Chavez Age: 53 yrs Sex: Male : 1970 Arrival Date: 06/12/2024 Time: 10:12 Bed 3 Private MD: ED Physician Rose Marie Mancini HPI: 06/12 10:50 This 53 yrs old Male presents to ER via Ambulatory with complaints of Dizziness, sp3 sweating, near syncope. 10:50 53-year-old male with history of melanoma with recent course of Keytruda presents to sp3 the ED today for chief complaint 2 episodes of dizziness, sweating and near syncope. Patient is also been taking magnesium supplements and pantoprazole as directed by his oncologist for management of Keytruda side effects and/or complications. Patient denies any headache, neck pain, full syncope, fever, chest pain, shortness of breath, abdominal pain, vomiting, diarrhea, rash, bleeding, or any other signs or symptoms on ROS at this time.. Historical: - Allergies: 10:27 No Known Allergies; cm10 - PMHx: 10:27 Melanoma; cm10 - Immunization history:: Adult Immunizations up to date. - Infectious Disease History:: Denies. - Social history:: Smoking status: Patient denies any tobacco usage or history of. ROS: 10:52 Eyes: Negative for injury, pain, redness, and discharge, ENT: Negative for injury, sp3 pain, and discharge, Neck: Negative for injury, pain, and swelling, Cardiovascular: Negative for chest pain, palpitations, and edema, Respiratory: Negative for shortness of breath, cough, wheezing, and pleuritic chest pain, Back: Negative for injury and pain, MS/Extremity: Negative for injury and deformity, Skin: Negative for injury, rash, and discoloration, Psych: Negative for depression, anxiety, suicide ideation, homicidal ideation, and hallucinations, Allergy/Immunology: Negative for hives, rash, and allergies, Endocrine: Negative for neck swelling, polydipsia, polyuria, polyphagia, and marked weight changes, 10:52 All other systems are negative, Exam: 10:52 Constitutional: This is a well developed, well nourished patient who is awake, alert, sp3 and in no acute distress. Head/Face: Normocephalic, atraumatic. Eyes: Pupils equal round and reactive to light, extra-ocular motions intact. Lids and lashes normal. Conjunctiva and sclera are non-icteric and not injected. Cornea within normal limits. Periorbital areas with no swelling, redness, or edema. ENT: Nares patent. No nasal discharge, no septal abnormalities noted. External auditory canals are clear. Oropharynx with no redness, swelling, or masses, exudates, or evidence of obstruction, uvula midline. Mucous membranes moist. Neck: Trachea midline, no thyromegaly or masses palpated, and no cervical lymphadenopathy. Supple, full range of motion without nuchal rigidity, or vertebral point tenderness. No Meningismus. Chest/axilla: Normal chest wall appearance and motion. Nontender with no deformity. No lesions are appreciated. Cardiovascular: Regular rate and rhythm with a normal S1 and S2. No gallops, murmurs, or rubs. Normal PMI, no JVD. No pulse deficits. Respiratory: Lungs have equal breath sounds bilaterally, clear to auscultation and percussion. No rales, rhonchi or wheezes noted. No increased work of breathing, no retractions or nasal flaring. Abdomen/GI: Soft, non-tender, with normal bowel sounds. No distension or tympany. No guarding or rebound. No evidence of tenderness throughout. Back: No spinal tenderness. No costovertebral tenderness. Full range of motion. Skin: Warm, dry with normal turgor. Normal color with no rashes, no lesions, and no evidence of cellulitis. MS/ Extremity: Pulses equal, no cyanosis. Neurovascular intact. Full, normal range of motion. Neuro: Awake and alert, GCS 15, oriented to person, place, time, and situation. Cranial nerves II-XII grossly intact. Motor strength 5/5 in all extremities. Sensory grossly intact. Cerebellar exam normal. Normal gait. Psych: Awake, alert, with orientation to person, place and time. Behavior, mood, and affect are within normal limits. 10:52 ECG was reviewed by the Attending Physician. EKG demonstrates normal sinus rhythm at 60 bpm with normal intervals, normal QRS, normal axis, normal ST/T-segment's without evidence of acute ischemia. Vital Signs: 10:24 BP 145 / 89; Pulse 65; Resp 15; Temp 98.3; Pulse Ox 100% on R/A; Weight 108.86 kg; cm10 Height 6 ft. 2 in. ; Pain 0/10; 12:02 BP 129 / 73; Pulse 70; Resp 15 S; Pulse Ox 99% on R/A; Pain 0/10; kc6 10:24 Body Mass Index 30.81 (108.86 kg, 187.96 cm) cm10 10:24 Pain Scale: Adult cm10 12:02 Pain Scale: Adult kc6 MDM: 10:29 Medical Screening Exam initiated sp3 10:52 Data reviewed: vital signs, nurses notes, lab test result(s), EKG, radiologic studies. sp3 ED course: 53-year-old male with dizziness, and near syncope status post Keytruda ending a few weeks ago. Patient travels in an and has no prior history here at this hospital. Differential diagnosis includes electrolyte abnormality, cardiac event, dehydration, medication side effect, intracranial pathology, among others. Workup will include CT scan of the head, EKG, general labs including electrolytes and troponin and general supportive care. Vital signs are normal and patient is not having any symptoms currently. If workup negative we will safely discharge patient home and patient can follow-up with his oncology team for further workup and/or diagnostics and/or follow-up as needed.. 11:36 ED course: Full workup negative. We will safely discharge patient home with oncology 3 follow-up as needed.. 06/12 10:30 Order name: Basic Metabolic Panel; Complete Time: 11:35 3 06/12 10:30 Order name: CBC with Diff; Complete Time: 11:35 3 06/12 10:30 Order name: LFT's; Complete Time: 11:35 3 06/12 10:30 Order name: Magnesium; Complete Time: 11:35 3 06/12 10:30 Order name: Troponin HS; Complete Time: 11:35 3 06/12 10:30 Order name: TSH; Complete Time: 11:35 3 06/12 10:31 Order name: Lipase; Complete Time: 11:35 3 06/12 10:31 Order name: CT Head Brain wo Cont; Complete Time: 10:55 3 06/12 10:30 Order name: Cardiac monitoring; Complete Time: 10:58 3 06/12 10:30 Order name: EKG - Nurse/Tech; Complete Time: 10:58 3 06/12 10:30 Order name: IV Saline Lock; Complete Time: 10:58 sp3 06/12 10:30 Order name: Labs collected and sent; Complete Time: 10:58 sp3 06/12 10:30 Order name: O2 Per Protocol; Complete Time: 10:41 sp3 06/12 10:30 Order name: O2 Sat Monitoring; Complete Time: 10:41 sp3 Administered Medications: No medications were administered Disposition Summary: 06/12/24 11:36 Discharge Ordered Notes: Location: Home sp3 Condition: Stable sp3 Diagnosis - Near syncope sp3 Followup: sp3 - With: Private Physician - When: Upon discharge from the Emergency Department - Reason: Recheck today's complaints, Continuance of care Discharge Instructions: - Discharge Summary Sheet sp3 - Near-Syncope sp3 Forms: - Medication Reconciliation Form sp3 - Antibiotic Education sp3 - Prescription Opioid Use sp3 - Patient Portal Instructions sp3 - Leadership Thank You Letter sp3 Signatures: Dispatcher [employer] EDMS Rose Marie Mancini MD MD sp3 Rosie Camara RN RN cm10 Corrections: (The following items were deleted from the chart) 10:31 10:31 BASIC METABOLIC PANEL+C.LAB.BRZ ordered. EDMS EDMS 10:31 10:31 CBC+H.LAB.BRZ ordered. EDMS EDMS 10:31 10:31 HEPATIC FUNCTION+C.LAB.BRZ ordered. EDMS EDMS 10:31 10:31 MAGNESIUM+C.LAB.BRZ ordered. EDMS EDMS 10:31 10:31 Troponin High Sensitivity+C.LAB.BRZ ordered. EDMS EDMS 10:31 10:31 THYROID STIMULAT HORMONE+C.LAB.BRZ ordered. EDMS EDMS
--- NOTE | 2024-06-12 11:37 | ER ---
Nurse's Notes [facility] Name: Itz Chavez Age: 53 yrs Sex: Male : 1970 Arrival Date: 06/12/2024 Time: 10:12 Bed 3 Private MD: Diagnosis: Near syncope Presentation: 06/12 10:24 Chief complaint: Patient states: Wants to have electrolyte levels and thyroid levels cm10 checked. Pt states that he completed KEYTRUDA in February for Melanoma and two days ago woke up feeling dizzy and sweaty. Pt states that today he had a similar episode. Pt denies any shortness of breath. No chest pain. Pt reports feeling dizzy. Coronavirus screen: Client denies travel out of the [place] in the last 14 days. Ebola Screen: Patient denies travel to an Ebola-affected area in the 21 days before illness onset. Initial Sepsis Screen: Does the patient meet any 2 criteria? No. Patient's initial sepsis screen is negative. Does the patient have a suspected source of infection? No. Patient's initial sepsis screen is negative. Risk Assessment: Do you want to hurt yourself or someone else? Patient reports no desire to harm self or others. Onset of symptoms was June 12, 2024. 10:24 Method Of Arrival: Ambulatory cm10 10:24 Acuity: MINNIE 3 cm10 Triage Assessment: 10:27 General: Appears in no apparent distress. comfortable, Behavior is calm, cooperative. cm10 Pain: Denies pain. Neuro: No deficits noted. Level of Consciousness is awake, alert, obeys commands, Oriented to person, place, time, situation, Appropriate for age. Respiratory: No deficits noted. Airway is patent Respiratory effort is even, unlabored, Respiratory pattern is regular, symmetrical. Historical: - Allergies: 10:27 No Known Allergies; cm10 - PMHx: 10:27 Melanoma; cm10 - Immunization history:: Adult Immunizations up to date. - Infectious Disease History:: Denies. - Social history:: Smoking status: Patient denies any tobacco usage or history of. Screenin:58 [facility] ED Fall Risk Assessment (Adult) History of falling in the last 3 months, kc6 including since admission No falls in past 3 months (0 pts) Confusion or Disorientation No (0 pts) Intoxicated or Sedated No (0 pts) Impaired Gait No (0 pts) Mobility Assist Device Used No (0 pt) Altered Elimination No (0 pt) Score/Fall Risk Level 0 - 2 = Low Risk Oriented to surroundings, Maintained a safe environment, Educated pt \T\ family on fall prevention, incl call for assistance when getting out of bed. Abuse screen: Denies threats or abuse. Denies injuries from another. Nutritional screening: No deficits noted. Tuberculosis screening: No symptoms or risk factors identified. Assessment: 10:58 General: Appears in no apparent distress. comfortable, well groomed, well developed, kc6 Behavior is calm, cooperative, appropriate for age. Pain: Denies pain. Neuro: Level of Consciousness is awake, alert, obeys commands, Oriented to person, place, time, situation, Appropriate for age Reports dizziness, weakness. Cardiovascular: Denies chest pain, shortness of breath, Capillary refill < 3 seconds Rhythm is sinus bradycardia. Respiratory: Airway is patent Trachea midline Respiratory effort is even, unlabored, Respiratory pattern is regular, symmetrical. Derm: No signs and/or symptoms reported regarding the dermatologic system. Skin is intact, is healthy with good turgor, Skin is pink, warm \T\ dry. Vital Signs: 10:24 BP 145 / 89; Pulse 65; Resp 15; Temp 98.3; Pulse Ox 100% on R/A; Weight 108.86 kg; cm10 Height 6 ft. 2 in. ; Pain 0/10; 12:02 BP 129 / 73; Pulse 70; Resp 15 S; Pulse Ox 99% on R/A; Pain 0/10; kc6 10:24 Body Mass Index 30.81 (108.86 kg, 187.96 cm) cm10 10:24 Pain Scale: Adult cm10 12:02 Pain Scale: Adult kc6 ED Course: 10:16 Patient arrived in ED. ph 10:17 Rose Marie Mancini MD is Attending Physician. sp3 10:27 Triage completed. cm10 10:27 Arm band placed on left wrist. Patient placed in an exam room, on a stretcher. cm10 10:41 Liz Caro, [place] is Primary Nurse. kc6 10:44 CT Head Brain wo Cont In Process Unspecified. EDMS 10:58 Patient has correct armband on for positive identification. Bed in low position. Call kc6 light in reach. Side rails up X 1. Adult w/ patient. lunchroom monitor on. Pulse ox on. NIBP on. Door closed. Noise minimized. Lights dimmed. Pillow given. Verbal reassurance given. 10:58 Initial lab(s) drawn, by me, sent to lab. EKG done, by ED staff, reviewed by Rose Marie Mancini MD. Inserted saline lock: 20 gauge in right forearm, using aseptic technique. Blood collected. Flushed with 10 mL NS. Patient maintains SpO2 saturation greater than 95% on room air. 12:02 No provider procedures requiring assistance completed. IV discontinued, intact, kc6 bleeding controlled, No redness/swelling at site. Pressure dressing applied. Administered Medications: No medications were administered Medication: 12:02 VIS not applicable for this client. kc6 Outcome: 11:36 Discharge ordered by . ruthann 12:02 Discharged to home ambulatory, with significant other, pham 12:02 Condition: good 12:02 Discharge instructions given to patient, significant other, Instructed on discharge instructions, follow up and referral plans. Demonstrated understanding of instructions, follow-up care, 12:02 Patient left the ED. kc6 Signatures: Dispatcher [employer] EDMA Una Oliveira, RN RN Rose Marie Mancini MD MD sp3 Liz Caro RN RN Rosie Hatch RN RN cm10 Corrections: (The following items were deleted from the chart) 10:28 10:24 Chief complaint: Patient states: Wants to have electrolyte levels and thyroid cm10 levels checked. Pt states that he completed KEYTRUDA in February for Melanoma and two days ago woke up feeling dizzy and sweaty. Pt states that today he had a similar episode. Pt denies any shortness of breath. No chest pain. cm10
[2024-06-12 17:32] VITALS: TEMP 98.3
[2024-06-12 17:34] VITALS: BP 129/73; O2SAT 99
== END 2024-06-12 12:02 | disposition home or self-care (01) ==
LOC: ER 10:12
DX: R55 Syncope and collapse (principal); R42 Dizziness and giddiness; Z85.820 Personal history of malignant melanoma of skin
CPT/HCPCS: 36415; 70450; 80048; 80076; 83690; 83735; 84443; 84484; 85025; 93005